=== PATIENT | female | born 1945 | race Caucasian/White ===

== ENCOUNTER → 2020-03-30 | Outpatient (CLI) | payer OTHER ==
[~2020-03-30] MED LIST: ACETAMINOPHEN-1 EAC1 PO; ACETAMINOPHEN325 M1 PO; AMARYL4 MG PO; AMITIZA 24 MCG24 MC1 PO; AMLODIPINE BESYL5 MG PO; HYDROCODONE-AP1 EAC6; INVOKANA100 MG PO; JANUMET 50-1,01 EACH PO; LIPITOR20 MG PO; LISINOPRIL20 MG PO; LISINOPRIL40 MG PO; ONDANSETRON HCL8 M2 PO; ONGLYZA5 MG PO; PRINZIDE 20-251 EACH PO; REQUIP 1 MG TABL1 M1 PO; THERA GESIC CRE TP; ZOFRAN ODT4 MG PO
== END ==
LOC: SJCVCIMAG 09:26
PROVIDERS: ATTEND Internal Medicine Cardiovascular Disease
DX: I70.203 Unspecified atherosclerosis of native arteries of extremities, bilateral legs (principal); R94.31 Abnormal electrocardiogram [ECG] [EKG]; I44.0 Atrioventricular block, first degree; I45.4 Nonspecific intraventricular block; I25.10 Atherosclerotic heart disease of native coronary artery without angina pectoris; I10 Essential (primary) hypertension; E78.00 Pure hypercholesterolemia, unspecified; E11.9 Type 2 diabetes mellitus without complications; I72.4 Aneurysm of artery of lower extremity; Z95.818 Presence of other cardiac implants and grafts; Z79.899 Other long term (current) drug therapy; Z87.891 Personal history of nicotine dependence

== ENCOUNTER → 2020-09-30 | Outpatient (CLI) | payer OTHER | LOC: LAB 13:12 | PROVIDERS: ATTEND Internal Medicine Cardiovascular Disease | DX: Z01.812 Encounter for preprocedural laboratory examination (principal); Z20.822 Contact with and (suspected) exposure to COVID-19 ==

== ENCOUNTER → 2020-09-30 | Outpatient (CLI) | payer OTHER | LOC: SJCVCIMAG 09:36 | PROVIDERS: ATTEND Internal Medicine Cardiovascular Disease | DX: I70.203 Unspecified atherosclerosis of native arteries of extremities, bilateral legs (principal); I35.0 Nonrheumatic aortic (valve) stenosis; R94.31 Abnormal electrocardiogram [ECG] [EKG]; I25.10 Atherosclerotic heart disease of native coronary artery without angina pectoris; I11.9 Hypertensive heart disease without heart failure; E78.00 Pure hypercholesterolemia, unspecified; E11.40 Type 2 diabetes mellitus with diabetic neuropathy, unspecified; E11.51 Type 2 diabetes mellitus with diabetic peripheral angiopathy without gangrene; E11.65 Type 2 diabetes mellitus with hyperglycemia; I77.9 Disorder of arteries and arterioles, unspecified; R55 Syncope and collapse; R42 Dizziness and giddiness; Z90.710 Acquired absence of both cervix and uterus; Z95.828 Presence of other vascular implants and grafts; Z98.890 Other specified postprocedural states; Z88.8 Allergy status to other drugs, medicaments and biological substances; Z79.82 Long term (current) use of aspirin; Z79.84 Long term (current) use of oral hypoglycemic drugs; Z79.899 Other long term (current) drug therapy; Z87.891 Personal history of nicotine dependence ==

== ENCOUNTER → 2020-10-05 | Outpatient (CLI) | payer OTHER ==
[~2020-10-05] VITALS: Ht 167.6 cm; Wt 96.2 kg
[~2020-10-05] MED LIST changes: +ASA81BEC PO; +BASAGLAR K100 UNIT/1 SUBQ; +METFORMIN HCL500 M3 PO; +MOBIC7.5 MG PO; +PLAVIX 75 MG TA75 MG PO
[2020-10-05 07:19] VITALS: BP 158/66
[2020-10-05 07:49] LABS: HEMATOCRIT 38.9 % (37.0-47.0); HEMOGLOBIN 12.6 gm/dL (12.0-15.0); MCH 28.2 pg (26.0-34.0); MCHC 32.5 g/dL (28.0-37.0); MCV 86.6 fL (80.0-100.0); RBC 4.48 mil/uL (4.20-5.00); RDW 14.1 % (10.5-14.5); WBC 11.3 thou/uL (4.0-11.0)
[2020-10-05 07:54] LABS: CALCIUM 9.6 mg/dL (8.5-10.1); CREATININE 1.2 mg/dL (0.6-1.0); POTASSIUM 4.2 mmol/L (3.5-5.1)
--- NOTE | 2020-10-05 08:42 | TEE ---
[facility] [place] [address] TRANSESOPHAGEAL ECHOCARDIOGRAM Name: CLAU ENCISO Room #: REG WALTER Fall.#: [id number] Admission: 10/05/20 Attend Phys: Colin Escobar MD, Discharge: Date of : 49 Report #: [id number] THIS REPORT FOR: cc: Marco A Tavarez MDwhite county memorial hospitalCori Dave Colon MD [facility] ~ APPROVED REPORT Study performed: 10/05/2020 07:49:36 EXAM: Transesophageal Echocardiogram Patient Location: CVL Status: routine BSA: 2.05 HR: 75 bpm BP: 130/66 mmHg Rhythm: NSR Other Information Study Quality: Adequate Indications Aortic Stenosis Procedure After obtaining informed consent, patient underwent transesophageal echo in the [employer]. Type of Sedation : Conscious Sedation Sedation was administered by Christina Myers RN. Sedation was achieved intravenously with: Versed (3) Fentanyl (50) Transesophageal probe was inserted and advanced into esophagus without difficulty by Dave Maravilla MD. Echo enhancement indication: R/O Septal defect. Echo enhancement agent administered: Agitated Saline The MINDA was performed without complications. Throughout the procedure, the blood pressure, pulse oximetry, cardiac rhythm, and rate were monitored. The patient tolerated the procedure without adverse effects. Recovery from conscious sedation was uneventful and vital signs were stable. Left Ventricle The left ventricle is normal size. Mild concentric left ventricular [facility] [address] [address] TRANSESOPHAGEAL ECHOCARDIOGRAM Name: CLAU ENCISO Room #: REG Juan DavidTom#: [id number] Admission: 10/05/20 Attend Phys: oClin Escobar, Discharge: Date of : 49 Report #: [id number] hypertrophy. Left ventricular systolic function is low normal. LVEF is 50-55% Right Ventricle The right ventricle is normal size. The right ventricular systolic function is normal. Atria The left atrium size is normal. No shunting noted with contrast bubble injection. The right atrium size is normal. Aortic Valve Aortic valve is trileaflet. Leaflets are heavily calcified. Trace aortic regurgitation. Severe aortic stenosis. Mitral Valve The mitral valve is normal in structure. Trace mitral regurgitation. Tricuspid Valve The tricuspid valve is normal in structure. Trace tricuspid regurgitation. Great Vessels The aortic root is normal in size. Mild atherosclerotic plaque is present in the descending aorta. Pericardium There is no pericardial effusion. <Conclusion> Consent was obtained Timeout was performed After appropriate sedation esophageal probe was advanced without difficulty Left atrial appendage, moderate sized, no obvious clot detected Normal atrial size Trileaflet aortic valve with evidence of severe stenosis Trace aortic valve insufficiency Aortic valve diameter 3.1 cm, aortic root 2.8 cm Ejection fraction 5055 % Normal mitral valve structure and function No evidence of tricuspid valve insufficiency No evidence of ASD/VSD by color flow/bubble study No pericardial effusion [facility] [address] [place] [address] TRANSESOPHAGEAL ECHOCARDIOGRAM Name: CLAU ENCISO E Room #: REG M.R.#: [id number] Admission: 10/05/20 Attend Phys: Colin Escobar, Discharge: Date of : 49 Report #: [id number] Mild calcification throughout the aorta Patient tolerated procedure well <ELECTRONICALLY SIGNED> By: Dave Goss MD, FACC 10/05/20841 1 1 Dave Goss MD, FACC /INF
--- NOTE | 2020-10-05 15:56 | EKG ---
[facility] [place] [address] [place] [address] ELECTROCARDIOGRAM REPORT Name: CLAU ENCISO Room #: REG WALTER Sheldon#: [id number] Admission: 10/05/20 Attend Phys: Colin Escobar MD, Discharge: Date of : 49 Report #: [id number] [facility] Test Date: 2020-10-05 Test Time: 07:46:56 Pat Name: CLAU ENCISO Department: Room: Gender: F Idea Worker: ALBERT : 1945 Requested By: Dave Goss Order Number: [id number] MD: Dave Goss Measurements Intervals [place] Rate: 80 P: 24 IL: 234 QRS: -49 QRSD: 129 T: 122 QT: 436 QTc: 503 Interpretive Statements Sinus rhythm Prolonged IL interval LVH with IVCD, LAD and secondary repol abnrm Prolonged QT interval Baseline wander in lead(s) V1 Compared to ECG 07/30/2015 08:34:50 Intraventricular conduction delay now present Left ventricular hypertrophy now present Early repolarization now present Prolonged QT interval now present Electronically Signed On 10-05-2020 15:56:40 [employer] by Dave Goss [email or web address] <ELECTRONICALLY SIGNED> By: Dave Goss MD, [facility] 10/05/20 1556 0746 0746 Dave Goss MD, [facility] /EPI
--- NOTE | 2020-10-06 17:10 | CATHLAB ---
[facility] [place] [address] INVASIVE PROCEDURE REPORT Name: CLAU ENCISO Room #: KELSEY FallTom#: [id number] Admission: 10/05/20 Attend Phys: Colin Escobar MD, Discharge: Date of : 49 Report #: [id number] THIS REPORT FOR: cc: Marco A Tavarez MD [facility] Colin Escobar MD [facility] ~ APPROVED REPORT Study performed: 10/05/2020 08:32:24 Patient Details Patient Status: Out-Patient Room #: The patient is a 75 year-old female Event Personnel Colin Escobar Fingernail Technician, Cornelius Enrique RN RN, Christina Myers RN RN, Agnes Rose RTR, Jacques Lundberg Sherra RTR Monitor Procedures Performed Art Access - R femoral artery* Peewee Access - R femoral vein Supravalvular Aortography Injection [id number] ISVA Aortogram Abdominal Peripheral Angio 311172 05304 Initial Mod Sed Same Phys/QHP Gr5y 441462 14629 Mod Sed Same Phys/QHP Ea 369049 Coronaries Angiography w/Rt Heart Cath [id number] RHCWCOR Hemostasis w/ Mynx Indication Chest pain Procedure Narrative The Right Groin^ was infiltrated with 1% Lidocaine subcutaneous anesthesia. A Right Heart Catheterization was performed with a 7 Fr. Nicasio-Duane catheter and pressure were recorded. Cardiac outputs were obtained by the Thermal Dilution method. A PINNACLE 7FR Sheath #[id number] sheath was inserted into the RFA^. Coronary angiography was performed using coronary diagnostic catheters. The right coronary system was accessed and visualized with a JL3.5 catheter. The left coronary system was accessed and visualized with a JL4 catheter. The left ventricle was accessed and visualized with a PIGTAIL catheter. Closure device was deployed with a 6 Fr Mynx Control. The patient tolerated the procedure well and there were no complications associated with the procedure. There was no hematoma. Intraoperative Conscious Sedation [facility] [address] [place] [address] INVASIVE PROCEDURE REPORT Name: CLAU ENCISO Room #: [facility]#: [id number] Admission: 10/05/20 Attend Phys: Colin Escobar, Discharge: Date of : 49 Report #: [id number] Sedation start time: 856 Case end Time: 117 Sedation times and amounts, fluoro time and doses are all from a combo case with Dr. Cho Fluoro Time: 25.34 minutes Dose: DAP 29047.60 cGycm2 2006 mGy Contrast Type and Amount: Visipaque 387 ml Hemodynamics The right atrial mean pressure is 9 mmHg. The right ventricular pressure is 43/-4 mmHg. The pulmonary artery pressure is 40/9 mmHg with a mean of 21 mmHg. The mean pulmonary capillary wedge pressure is 10 mmHg. The aortic pressure is 134/53 mmHg with a mean of 52 mmHg. The cardiac output using thermo method is 5.55 L/min. The cardiac index using thermo method is 2.70 L/min/m2. PCI Technique Lesion Percutaneous coronary intervention was performed on the Superficial Femoral. Conclusion #1. Successful right heart catheterization with cardiac output by thermodilution. See above hemodynamics. #2 MINDA was performed prior to this procedure for critical aortic valve stenosis see that report. Aortic valve not crossed during this exam. #3 supravalvular aortogram was performed there is trivial aortic insufficiency calcified aortic valve is noted aortic root appears normal in caliber. #4 abdominal aortogram reveals mild aortic ectasia and calcification but no aneurysm or high-grade stenosis. #5 left main mild calcification mild disease giving rise to LAD and circumflex. #6 LAD proximal calcification eccentric 60 to 70% proximal lesion diffuse disease distally around the apex. #6 circumflex OM has a high rising marginal branch mildly diseased and a larger distal circumflex OM branch which also mildly disease may be somewhat of a codominant system. 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 Recommendations and plan: Patient to have SFA intervention at this setting. And then further evaluation regarding valve replacement [facility] [address] [place] [address] INVASIVE PROCEDURE REPORT Name: CLAU ENCISO Room #: KELSEY Sheldon#: [id number] Admission: 10/05/20 Attend Phys: Colin Escobar, Discharge: Date of : 49 Report #: [id number] considering TAVR versus SAVR does not appear that the coronary anatomy would need intervention. Moderate disease in the proximal LAD focal will follow. <ELECTRONICALLY SIGNED> By: Colin Escobar MD, FACC 10/06/201709 09 09 Colin Escobar MD, FAC /INF
== END | disposition home or self-care (01) ==
LOC: CATH 06:32
PROVIDERS: Nuclear Medicine Nuclear Cardiology; ATTEND Internal Medicine Cardiovascular Disease
DX: R07.9 Chest pain, unspecified (principal); I25.10 Atherosclerotic heart disease of native coronary artery without angina pectoris; I35.2 Nonrheumatic aortic (valve) stenosis with insufficiency; I70.212 Atherosclerosis of native arteries of extremities with intermittent claudication, left leg; I77.811 Abdominal aortic ectasia; I70.1 Atherosclerosis of renal artery; I10 Essential (primary) hypertension; E11.51 Type 2 diabetes mellitus with diabetic peripheral angiopathy without gangrene; E78.5 Hyperlipidemia, unspecified; Z90.710 Acquired absence of both cervix and uterus; Z87.891 Personal history of nicotine dependence; Z98.890 Other specified postprocedural states; Z79.899 Other long term (current) drug therapy; Z79.4 Long term (current) use of insulin; Z88.8 Allergy status to other drugs, medicaments and biological substances

== ENCOUNTER → 2021-01-01 | Outpatient (CLI) | payer OTHER | LOC: SJCVCIMAG 10:14 | PROVIDERS: ATTEND Internal Medicine Cardiovascular Disease | DX: I65.23 Occlusion and stenosis of bilateral carotid arteries (principal); I70.203 Unspecified atherosclerosis of native arteries of extremities, bilateral legs; R94.31 Abnormal electrocardiogram [ECG] [EKG]; I72.4 Aneurysm of artery of lower extremity; I25.10 Atherosclerotic heart disease of native coronary artery without angina pectoris; I77.9 Disorder of arteries and arterioles, unspecified; E11.51 Type 2 diabetes mellitus with diabetic peripheral angiopathy without gangrene; I10 Essential (primary) hypertension; E78.00 Pure hypercholesterolemia, unspecified; I51.3 Intracardiac thrombosis, not elsewhere classified; F17.200 Nicotine dependence, unspecified, uncomplicated; Z95.2 Presence of prosthetic heart valve; Z95.820 Peripheral vascular angioplasty status with implants and grafts; Z90.49 Acquired absence of other specified parts of digestive tract; Z88.8 Allergy status to other drugs, medicaments and biological substances; Z79.84 Long term (current) use of oral hypoglycemic drugs; Z79.899 Other long term (current) drug therapy ==

== ENCOUNTER → 2021-08-16 | Outpatient (CLI) | payer OTHER | LOC: BC 10:08 | PROVIDERS: ATTEND Nurse Practitioner | DX: Z12.31 Encounter for screening mammogram for malignant neoplasm of breast (principal); N64.89 Other specified disorders of breast ==